=== PATIENT | female | born 1965 | race Hispanic/Latino ===

== ENCOUNTER 2020-09-19 07:48 | Day surgery (SDC) | payer BC ==
[2020-09-19] MEDS ORDERED: SODIUM CHLORIDE 0.9% 1000 ML 1,000 ML IV SCH (08:15)
--- NOTE | 2020-09-19 08:35 | Anesthesia Consultation ---
Anesthesia Consult and Med Hx Date of service: 09/19/20 - Airway Anesthetic Teeth Evaluation: Poor (edentulous on the top, only 5 front teeth in the bottom) ROM Head & Neck: Adequate Mental/Hyoid Distance: Adequate Mallampati Class: Class II Intubation Access Assessment: Probably Good - Pre-Operative Health Status ASA Pre-Surgery Classification: ASA3 Proposed Anesthetic Plan: MAC - Pulmonary Hx Smoking: Yes (1/2 pack/day x 30 years) COPD: Yes (takes inhaler) - Cardiovascular System Hx Hypertension: Yes - Central Nervous System Hx Neuromuscular Disorder: No Hx Back Pain: No (rheumatoid arthritis) Hx Psychiatric Problems: Yes (anxiety/depression) - Gastrointestinal Hx Ulcer: Yes (Crohn's disease)
--- NOTE | 2020-09-19 08:41 | Anesthesia Day of Surgery ---
Anesthesia Day of Surgery - Day of Surgery Patient Examined: Yes Patient H&P Reviewed: Yes Patient is NPO: Yes
[2020-09-19] MEDS ORDERED: LIDOCAINE MPF (2%) 20 MG/1 ML VIAL 5 ML ONE (09:09)
[2020-09-19] MEDS ORDERED: propofoL 200 MG/20 ML VIAL IV ONE ×2 (09:09→09:26)
[2020-09-19] MEDS ORDERED: ONDANSETRON 4 MG/2 ML INJ ONE (09:09)
--- NOTE | 2020-09-19 09:59 | Procedure Note ---
Date of procedure: 09/19/20 Pre-op diagnosis: Crohn's disease/ R/O Dysplasia Procedure: Colonoscopy with Cold Biopsy and Hot Hot Snare Polypectomy and use of Zimmerman Net to retrieve the Polyp Anesthesia: MAC Surgeon: HEATHER PAL Estimated blood loss: minimal Pathology: list Specimen disposition: to lab Condition: stable Disposition: same day (Avoid asprin and NSAID for 5 days, otherwise resume home medication. Follow up in 1 to 2 weeks ([phone]).)
[2020-09-19 10:06] VITALS: BP 117/75
--- NOTE | 2020-09-19 10:33 | Post Anesthesia Evaluation ---
- Post Anesthesia Evaluation Patient Participated: Yes Airway Patent: Yes Stable Respiratory Function: Yes Nausea/Vomiting: No Temp > 96.8F: Yes Pain Manageable: Yes Adequeate Hydration: Yes Anesthesia Complications: No Block Receding Appropriately: Not Applicable Patient on Ventilator: No
--- NOTE | 2020-09-19 12:24 | Operative Report ---
PROCEDURE: Colonoscopy with snare polypectomy and the use of a Zimmerman Net and cold biopsy. INDICATIONS: This is a 54-year-old white female with a history of Crohn's disease. She also has an underlying history of rheumatoid arthritis. Last colonoscopy was about 2 years ago. Colonoscopy was done to make sure that she is responding well to treatment with Remicade as far as her Crohn's disease is concerned and that there is no dysplasia that may have happened in the interim and also to check for any colon polyps. DESCRIPTION OF PROCEDURE: The procedure was done after getting informed consent with MAC anesthesia. Initial rectal exam was unremarkable. Instrument was passed through the rectum onto the cecum, which was identified with ileocecal valve and the appendiceal orifice. Visualization was fair to good. The terminal ileum was intubated, showed normal mucosa. Biopsy was done to rule out for possible ileitis. The patient did have a prominent ileocecal valve as biopsies were done randomly from the right as well as the transverse colon to assess for any dysplasia as well as from the left colon and the rectum also to assess for dysplasia. Endoscopically, the mucosa appeared to have healed. There were two polyps noted in the transverse colon, one in the mid transverse colon, which was about 10 mm in diameter that was removed by snare polypectomy and retrieved and the other was about 15 mm in diameter on a stalk that was also removed by hot snare polypectomy and retrieved by using a Zimmerman Net. Using the Zimmerman net, the scope was withdrawn, the polyp was retrieved and the scope had to be reintroduced again. There was minimal bleeding associated with the procedure. No complications associated with the procedure. ASSESSMENT: History of Crohn's disease, rule out ileitis, rule out Crohn's colitis, proximal transverse colon, polyp removed by snare polypectomy, retrieved with a Zimmerman Net with withdrawal of the colon scope and reintroduction and mid transverse colon polyp that was removed by hot snare polypectomy and retrieved. Minor internal hemorrhoids. PLAN: To advise the patient avoid aspirin and aspirin-related products for the next 5 days. We will continue with home medication and follow up in the office in 1-2 weeks' time. Procedure was done in the GI lab with assistance of the GI lab team, which included RN, Barbara Vega; Daniel jeffery and with assistance of anesthesia. JOB# [id number] ADALGISA/ISIS
== END 2020-09-19 07:49 | disposition home or self-care (01) ==
LOC: GIO 07:48
DX: Z12.11 Encounter for screening for malignant neoplasm of colon (principal); D12.3 Benign neoplasm of transverse colon; K63.89 Other specified diseases of intestine; I10 Essential (primary) hypertension; J44.9 Chronic obstructive pulmonary disease, unspecified; M06.9 Rheumatoid arthritis, unspecified; F32.9 Major depressive disorder, single episode, unspecified; F17.210 Nicotine dependence, cigarettes, uncomplicated; F41.9 Anxiety disorder, unspecified; Z90.710 Acquired absence of both cervix and uterus; Z98.890 Other specified postprocedural states
CPT/HCPCS: 45380; 45385; 88305; J2405; J2704; J7030